=== PATIENT | female | born 1985 | race African-American/Black ===

== ENCOUNTER 2017-01-04 16:11 | Observation (INO) | payer OTHER ==
[~2017-01-04] VITALS: Ht 157.5 cm; Wt 95.0 kg
[~2017-01-04 16:11] MED LIST: CEPH500 PO; HYDR-2768 PO; LISI-363 PO; PYRI200T4 PO
[2017-01-04 16:13] VITALS: BP 204/112; PULSE 74; RESP 18; O2SAT 96
[2017-01-04 16:38] VITALS: BP 195/131; PULSE 95; RESP 20; O2SAT 98
[2017-01-04] MEDS ORDERED: LISI-515 PO (16:40)
[2017-01-04] MEDS ORDERED: HYDR25TA5 PO (16:40)
[2017-01-04 16:59] LABS: MEAN CORPUSCULAR HGB CONC 36.3 % (32.0-36.0)
[2017-01-04] MEDS ORDERED: ASPIRIN 81 MG CHEW TAB PO ONE (17:00)
[2017-01-04] MEDS ORDERED: SODIUM CHLORIDE 0.9% FLUSH 10 ML FLUSH IVF PRN (17:00)
[2017-01-04] MEDS: NITROGLYCERIN 0.4 MG SL 25 TABS/BTL SL SCH ×3 (17:05→17:25)
--- NOTE | 2017-01-04 17:08 | PD ---
HPI Chief Complaint: Chest Pain Time Seen by Provider: 17:03 Travel History International Travel<30 days: No Contact w/Intl Traveler<30days: No Traveled to known affect area: No History of Present Illness HPI 31-year-old female presents to the emergency department for evaluation of chest pain. The patient states that last night as she was laying down to go to bed she had midsternal chest pain radiating to her back, describes it as sharp. States that she took a sleeping pill to go to sleep and slept through the night. States that when she woke up this morning the pain had moved to her left upper chest and left shoulder. Describes it as a "tightness" that is aggravated with movement however is constant. States she is also feeling "shaky " and weak. Denies any nausea, vomiting, shortness of breath, difficulty breathing, abdominal pain, diarrhea. Denies any history of heart disease or VA. She does smoke cigarettes for the past 4-5 years. Denies , last menstrual period 2 days ago. No other complaints. PFSH Past Medical History Diminished Hearing: No Hypertension: Yes (NEW) ?: Not : 2 Para: 1 Miscarriage: 0 : 1 Social History Alcohol Use: Yes (DAILY) Tobacco Use: Yes (/2 ppd) Substance Use: Yes (MARIJUANA ) Allergies-Medications (Allergen,Severity, Reaction): Coded Allergies: Bee Sting (Verified Allergy, Severe, Anaphylaxis, 03/24/16) Tomato (Verified Adverse Reaction, Intermediate, RASH, 03/24/16) Reported Meds & Prescriptions Reported Meds & Active Scripts Active Reported Lisinopril 20 Mg Tab 20 Mg PO DAILY Hydrochlorothiazide 25 Mg Tab 25 Mg PO DAILY Review of Systems Except as stated in HPI: all other systems reviewed are Neg Physical Exam Narrative GENERAL: Well-nourished and well-developed pleasant patient in no acute distress who is nontoxic appearing. SKIN: Warm and dry. HEAD: Normocephalic and atraumatic. EYES: No injection, drainage, or hyphema noted. PERRLA. EOMI. ENT: No nasal drainage noted. Oropharynx is clear. NECK: Supple and the trachea is midline. CARDIOVASCULAR: Regular rate and rhythm. RESPIRATORY: Breath sounds are equal bilaterally with no accessory muscle use, wheezing, rhonchi, or crackles. GASTROINTESTINAL: Abdomen is soft, non-tender, and nondistended. MUSCULOSKELETAL: Tenderness to palpation of left anterior chest wall and left trapezius muscle. No obvious deformities, swelling, cyanosis, or ecchymosis is present throughout the upper and lower extremities. Patient has full range of motion without any signs of neurovascular compromise. NEUROLOGICAL: Awake, alert, and oriented. Normal speech and gait. Cranial nerves are grossly intact. Data Data Last Documented VS Vital Signs Date Time Temp Pulse Resp B/P Pulse Ox O2 Delivery O2 Flow Rate FiO2 01/04/17 17:23 93 20 159/110 99 Room Air Orders Electrocardiogram (01/04/17 16:56) Ckmb (Isoenzyme) Profile (01/04/17 16:56) Complete Blood Count With Diff (01/04/17 16:56) Comprehensive Metabolic Panel (01/04/17 16:56) Prothrombin Time / Inr (Pt) (01/04/17 16:56) Act Partial Throm Time (Ptt) (01/04/17 16:56) Troponin I (01/04/17 16:56) Chest, Single Ap (01/04/17 16:56) Ecg Monitoring (01/04/17 16:56) Bilateral Bp Monitoring (01/04/17 16:56) Iv Access Insert/Monitor (01/04/17 16:56) Oximetry (01/04/17 16:56) Sodium Chloride 0.9% Flush (Ns Flush) (01/04/17 17:00) Ed Urine Pregnancytest Poc (01/04/17 16:56) Aspirin Chew (Aspirin Chew) (01/04/17 17:00) Nitroglycerin Sl (Nitrostat Sl) (01/04/17 17:00) CKMB (01/04/17 17:15) CKMB% (01/04/17 17:15) Potassium Chloride Eff (K-Lyte Cl Eff) (01/04/17 18:45) Admit Order (Ed Use Only) (01/04/17 18:45) Activity Bed Rest With Brp (01/04/17 18:45) Vital Signs (Adult) Q4H (01/04/17 18:45) Cardiac Rhythm .As Directed (01/04/17 18:45) Notify Dr: Other .PRN (01/04/17 18:45) Notify . Parameters (01/04/17 18:45) Resp Oxygen Nasal Cannula (01/04/17 ) Ckmb (Isoenzyme) Profile (01/04/17 20:15) Troponin I (01/04/17 20:15) Electrocardiogram (01/04/17 18:45) ^ Obtain (01/04/17 18:45) Sodium Chloride 0.9% Flush (Ns Flush) (01/04/17 18:45) Sodium Chloride 0.9% Flush (Ns Flush) (01/04/17 21:00) Acetaminophen (Tylenol) (01/04/17 18:45) Healthcare Educator / Telemetry ADILENE.Q8H (01/04/17 18:45) Nitroglycerin Sl (Nitrostat Sl) (01/04/17 19:00) Labs Laboratory Tests Test 01/04/17 17:15 White Blood Count 6.9 TH/MM3 Red Blood Count 4.85 MIL/MM3 Hemoglobin 15.5 GM/DL Hematocrit 42.7 % Mean Corpuscular Volume 88.1 FL Mean Corpuscular Hemoglobin 31.9 PG Mean Corpuscular Hemoglobin 36.3 % Concent Red Cell Distribution Width 13.6 % Platelet Count 292 TH/MM3 Mean Platelet Volume 9.3 FL Neutrophils (%) (Auto) 51.9 % Lymphocytes (%) (Auto) 36.1 % Monocytes (%) (Auto) 7.3 % Eosinophils (%) (Auto) 3.8 % Basophils (%) (Auto) 0.9 % Neutrophils # (Auto) 3.6 TH/MM3 Lymphocytes # (Auto) 2.5 TH/MM3 Monocytes # (Auto) 0.5 TH/MM3 Eosinophils # (Auto) 0.3 TH/MM3 Basophils # (Auto) 0.1 TH/MM3 CBC Comment AUTO DIFF Differential Comment AUTO DIFF CONFIRMED Platelet Estimate NORMAL Platelet Morphology Comment ENLARGED Target Cells 1+ Prothrombin Time 10.4 SEC Prothromb Time International 0.9 RATIO Ratio Activated Partial 29.2 SEC Thromboplast Time Sodium Level 140 MEQ/L Potassium Level 3.3 MEQ/L Chloride Level 103 MEQ/L Carbon Dioxide Level 28.1 MEQ/L Anion Gap 9 MEQ/L Blood Urea Nitrogen 5 MG/DL Creatinine 0.88 MG/DL Estimat Glomerular Filtration 91 ML/MIN Rate Random Glucose 81 MG/DL Calcium Level 9.5 MG/DL Total Bilirubin 0.5 MG/DL Aspartate Amino Transf 19 U/L (AST/SGOT) Alanine Aminotransferase 23 U/L (ALT/SGPT) Alkaline Phosphatase 75 U/L Total Creatine Kinase 116 U/L Creatine Kinase MB LESS THAN 0.5 NG/ML Troponin I LESS THAN 0.02 NG/ML Total Protein 8.0 GM/DL Albumin 4.3 GM/DL MDM Medical Decision Making Medical Screen Exam Complete: Yes Emergency Medical Condition: Yes Differential Diagnosis Hypertensive urgency versus atypical chest pain versus pleurisy versus chest wall pain versus ACS Narrative Course 31-year-old female presents to the emergency department for evaluation of chest pain. Patient is afebrile. She is hypertensive with a blood pressure of 195/ 131. Otherwise vital signs are within normal limits. She is reporting that she took all 3 of her blood pressure medications this morning, states that her doctor just added a new one yesterday to better control her blood pressure. IV access is obtained, labs been drawn and sent. Patient is placed on cardiac telemetry and pulse oximetry monitoring. Patient is administered aspirin and nitroglycerin sublingually. ED urine test is negative. EKG shows sinus tachycardia with a ventricular rate of 102 bpm, no acute ST elevations or depressions. CBC shows slightly elevated hemoglobin of 15.5, otherwise unremarkable. CMP shows hypokalemia with potassium of 3.3, otherwise unremarkable. This is repleted orally. Coags are unremarkable. Chest x-ray is negative for any acute abnormalities. Patient was given 2 sublingual nitroglycerin tablets which Laxmi pressure down to 159/110. She is given a third nitroglycerin tablet. She's remained stable and without complaint. ED. States that her chest pain has improved after the nitroglycerin tablets. She'll be admitted to chest pain center for repeat cardiac enzymes, EKGs and possible stress testing. I discussed the case with my attending physician Dr. Stevens who is aware of the patients history, physical examination findings, and treatment plan. Diagnosis Primary Impression: Chest pain Qualified Code: R07.9 - Chest pain, unspecified type Additional Impression: Hypokalemia Admitting Information Admitting Physician Requests: Observation Jadyn Lemos Jan 04, 2017 17:08 Admitting Information Admitting Physician Requests: Observation Jadyn Lemos Jan 04, 2017 17:08
[2017-01-04 17:22] VITALS: BP_SYST 168; BP_SYST 195; BP_DIAS 102; BP_DIAS 131
[2017-01-04 17:23] VITALS: BP 159/110; PULSE 93; RESP 20; O2SAT 99
--- NOTE | 2017-01-04 17:32 | RADRPT ---
EXAM DATE/TIME: 01/04/2017 17:11 [facility] COMPARISON: No previous studies available for comparison. INDICATIONS : Chest pain. MEDICAL HISTORY : Hypertension. SURGICAL HISTORY : None. ENCOUNTER: Initial ACUITY: 1 day PAIN SCORE: 7/10 LOCATION: Bilateral chest FINDINGS: A single view of the chest demonstrates the lungs to be symmetrically aerated without evidence of mas s, infiltrate or effusion. The cardiomediastinal contours are unremarkable. Osseous structures are intact. CONCLUSION: No acute disease. Sla Magallanes MD on January 04, 2017 at 17:30 Board Certified Radiologist. This report was verified electronically.
[2017-01-04 17:50] LABS: AUTOMATED NEUTROPHIL # 3.6 TH/MM3 (1.8-7.7); BASOPHIL # 0.1 TH/MM3 (0-0.2); BASOPHIL % 0.9 % (0.0-2.0); EOSINOPHIL # 0.3 TH/MM3 (0-0.4); EOSINOPHIL % 3.8 % (0.0-4.0); HEMATOCRIT 42.7 % (35.0-46.0); LYMPH % 36.1 % (9.0-44.0); LYMPHOCYTE # 2.5 TH/MM3 (1.0-4.8); MEAN CELL VOLUME 88.1 FL (80.0-100.0); MEAN CORPUSCULAR HEMOGLOBIN 31.9 PG (27.0-34.0); MONO % 7.3 % (0.0-8.0); NEUT % 51.9 % (16.0-70.0); PLATELET COUNT 292 TH/MM3 (150-450); RED BLOOD COUNT 4.85 MIL/MM3 (4.00-5.30); RED CELL DISTRIBUTION WIDTH 13.6 % (11.6-17.2); WHITE BLOOD COUNT 6.9 TH/MM3 (4.0-11.0)
[2017-01-04 17:51] LABS: HEMO FLAGS AUTO DIFF
[2017-01-04 18:03] LABS: APTT (PATIENT) 29.2 SEC (24.3-30.1); INTERNATIONAL NORMALIZED RATIO 0.9 RATIO; PROTHROMBIN TIME - PATIENT 10.4 SEC (9.8-11.6)
[2017-01-04 18:05] LABS: ALT (GPT) 23 U/L (10-53); ANION GAP 9 MEQ/L (5-15); AST (GOT) 19 U/L (15-37); BICARBONATE 28.1 MEQ/L (21.0-32.0); BLOOD UREA NITROGEN 5 MG/DL (7-18); CHLORIDE 103 MEQ/L (98-107); GLOMERULAR FILTRATION RATE 91 ML/MIN (>89); POTASSIUM 3.3 MEQ/L (3.5-5.1); SODIUM (NA) 140 MEQ/L (136-145)
[2017-01-04 18:09] LABS: ALKALINE PHOSPHATASE 75 U/L (45-117); CREATINE KINASE 116 U/L (26-192); TOTAL BILIRUBIN ADULT 0.5 MG/DL (0.2-1.0)
[2017-01-04 18:22] LABS: CKMB LESS THAN 0.5 NG/ML (0.5-3.6)
[2017-01-04 18:36] LABS: PLATELET ESTIMATE SMEAR NORMAL (NORMAL); PLATELET MORPHOLOGY ENLARGED (NORMAL); SCAN/DIFF AUTO DIFF CONFIRMED; TARGET CELLS 1+ (NORMAL)
[2017-01-04] MEDS ORDERED: POTASSIUM CHLORIDE 25 MEQ EFFERVESCENT TAB PO ONE (18:45)
[2017-01-04] MEDS ORDERED: ACETAMINOPHEN 500 MG CPLT PO PRN (18:45)
[2017-01-04] MEDS ORDERED: SODIUM CHLORIDE 0.9% FLUSH 10 ML FLUSH IV FLUSH PRN (18:45)
[2017-01-04] MEDS ORDERED: NITROGLYCERIN 0.4 MG SL 25 TABS/BTL SL ONE (19:00)
[2017-01-04 19:37] VITALS: BP 147/118; PULSE 84; RESP 18; TEMP 98.1; O2SAT 97
[2017-01-04] MEDS ORDERED: SODIUM CHLORIDE 0.9% FLUSH 10 ML FLUSH IV FLUSH SCH (21:00)
--- NOTE | 2017-01-09 08:20 | EKG ---
Date Performed: 01/04/2017 Time Performed: 16:32:50 PTAGE: 31 years EKG: SINUS TACHYCARDIA ABNORMAL RHYTHM ECG INTERPRETATION BASED ON A DEFAULT AGE OF 40 YEARS Com pared to prior tracing no significant change PREVIOUS TRACING 07/03/15 @0924 DOCTOR: Francesco Johnson Interpretating Date/Time 01/09/2017 08:17:27
== END 2017-01-04 20:15 | disposition left against medical advice (07) ==
LOC: NEPE 16:11 → NEDA 18:52
PROVIDERS: ADMIT Family Medicine; ATTEND Family Medicine
DX: R07.9 Chest pain, unspecified (principal); E87.6 Hypokalemia; R53.1 Weakness; I10 Essential (primary) hypertension; F17.210 Nicotine dependence, cigarettes, uncomplicated; F12.10 Cannabis abuse, uncomplicated; R00.0 Tachycardia, unspecified
CPT/HCPCS: 71010; 80053; 82550; 82552; 84484; 84703; 85025; 85610; 85730; 93005; 99285; G0378